=== PATIENT | male | born 1960 | race Caucasian/White ===

== ENCOUNTER → 2018-04-21 06:52 | Outpatient (CLI) | payer OTHER, SELFPAY ==
--- NOTE | 2018-04-21 06:57 | DI.MRI.S_ITS ---
PROCEDURE: MR LUMBAR SPINE WO CON INDICATIONS: Low back pain. Left leg radicular pain with left calf burning sensation TECHNIQUE: Noncontrast sagittal T1 spin echo and T2 fast echo, sagittal STIR, axial T1 and T2 fast spin echo through the lumbar spine. In cases with scoliosis, additional coronal T2 fast spin echo may be performed. COMPARISON: None. FINDINGS: Image quality: Excellent. Alignment and Curvature: There is straightening of the normal lumbar lordosis. No focal AP alignment abnormality is seen. On sample tester images, mild convex lumbar scoliotic curvature can be seen. Bone Marrow: Marrow is of normal overall signal. No acute vertebral body compression fractures. Spinal Cord: Conus medullaris terminates at the L1 level. Visualized cord demonstrates normal signal and size. Paraspinous Soft Tissues: No paravertebral masses. T12-L1: Mild loss of disc height is seen. Loss of disc signal is seen. Moderate disc bulge is seen, which is eccentric to the left. There is a central/left disc extrusion, with inferior migration of disc material, as on series 5 image 9. There is mild to moderate left-sided and no significant right-sided neural foraminal narrowing seen. Moderate central canal narrowing is seen. L1-L2: No significant abnormality is seen. L2-L3: Moderate to severe loss of disc height and disc signal are seen. Prominent disc bulge is seen at this level. There is a central disc extrusion seen, with mild inferior migration of the disc material. Moderate to severe bilateral neural foraminal narrowing is seen, right worse than left. Severe central canal narrowing is seen. L3-L4: The disc height and disc signal are relatively well-preserved. Mild to moderate disc bulge is seen, which is eccentric to the right. There is mild left-sided and moderate right-sided neural foraminal narrowing seen. Minimal central canal narrowing is seen. L4-L5: There is moderate loss of disc height on the left side. Loss of disc signal is seen. Moderate to prominent disc bulge is seen, with a central disc extrusion. Mild to moderate facet hypertrophy is seen. Moderate to severe bilateral neural foraminal narrowing is seen, left worse than right. Moderate to severe central canal narrowing is seen, as on series 5 image 30. L5-S1: Moderate to severe loss of disc height and disc signal are seen at this level. Moderate generalized disc bulge is seen. There is a central disc extrusion, with inferior migration of the disc material, as on series 2 image 8 and on series 5 image 36. Moderate facet joint hypertrophy is seen. Moderate to severe bilateral neural foraminal narrowing is seen. Moderate central canal narrowing is seen. IMPRESSION: Multiple levels of relatively prominent degenerative change are seen. At the L5-S1 level, there is a significant disc extrusion seen with associated moderate central canal narrowing. There is moderate to severe bilateral neural foraminal narrowing seen at this level. At L2-L3, there is moderate to severe bilateral neural foraminal narrowing and severe central canal narrowing present. Dictated by: Marty Tran M.D. on 04/21/2018 at 8:49 Approved by: Marty Tran M.D. on 04/21/2018 at 8:56
== END ==
PROVIDERS: Visit Provider Physical Medicine & Rehabilitation
DX: M54.5 Low back pain (principal); M47.26 Other spondylosis with radiculopathy, lumbar region; M47.27 Other spondylosis with radiculopathy, lumbosacral region; M48.061 Spinal stenosis, lumbar region without neurogenic claudication; M48.07 Spinal stenosis, lumbosacral region
CPT/HCPCS: 72148

== ENCOUNTER 2019-01-18 08:11 | Outpatient (CLI) | payer OTHER, SELFPAY ==
[2019-01-18] VITALS (8 sets, daily range): BP systolic 106–152; BP diastolic 46–83; PULSE 43–55; RESP 15–16; TEMP 36.1; O2SAT 97–100
--- NOTE | 2019-01-18 08:13 | DI.RAD.S_ITS ---
PROCEDURE: XR LUMBAR SPINE MIN 4V INDICATIONS: Lumbosacral spondylosis with left lower extremity radiculopa TECHNIQUE: 5 views of the lumbar spine were acquired. COMPARISON: [facility], MR, MR LUMBAR SPINE WO CON, 04/21/2018, 7:14. FINDINGS: Bones: 5 nonrib-bearing vertebrae are present. There is trace retrolisthesis of L1 on L2, L4 and L5, grade 1 retrolisthesis of L3 on L4, L5 on S1. No vertebral body compression fractures. No suspicious bony lesions. Severe disc space narrowing with endplate changes are present at L2-3 and L5-S1. Moderate disc space narrowing is present at L4-5. Multilevel anterior osteophytes are present. Severe foraminal narrowing is present at multiple levels including L2-3, L3-4, L4-5 and L5-S1. This was also noted on MRI exam of 04/21/18. Soft tissues: Overlying bowel gas pattern is normal. No suspicious soft tissue calcifications. Oblique images: No pars defects. IMPRESSION: Multilevel degenerative changes as above including multilevel significant foraminal narrowing. Dictated by: Jenifer Shane M.D. on 01/18/2019 at 9:50 Approved by: Jenifer Shane M.D. on 01/18/2019 at 10:05
--- NOTE | 2019-01-18 08:13 | DI.RAD.S_ITS ---
PROCEDURE: PAIN L/S TRANSFORAMINAL INJECT INDICATIONS: INTERVERTEBRAL DISC DISPLACEMENT FINDINGS: Fluoroscopic spot filming was performed to verify placement of spinal needles at the left L4-L5 level(s), as labeled on the films. Appropriate location(s) of the needle tip(s) was confirmed by injection of iodinated contrast. IMPRESSION: Successful needle tip localization adjacent to the left L4-L5 neural foramen for epidural steroid injection. Dictated by: Addison Chandler M.D. on 01/18/2019 at 13:25 Approved by: Addison Chandler M.D. on 01/18/2019 at 13:25
[2019-01-18] MEDS: MIDAZOLAM 5 MG/5 ML VIAL IV (09:14)
[2019-01-18] MEDS: fentaNYL 100 MCG/2 ML INJ 50 MCG IV (09:14)
[2019-01-18] MEDS: BUPIVACAINE 0.25% (PF) VIAL 2 ML INJ (09:18)
[2019-01-18] MEDS: DEXAMETHASONE 10 MG/ML VIAL 20 MG INJ (09:20)
[2019-01-18] MEDS: BETAMETHASONE 30 MG/5 ML MDV 6 MG INJ (09:21)
[2019-01-18] MEDS: IOPAMIDOL 15 ML VIAL 3 ML INJ (09:21)
--- NOTE | 2019-01-18 09:30 | P.PCN_ITS ---
Procedures Date/Time Date of procedure: 01/18/19 Time of procedure: 09:30 General Procedure description: PREOP DIAGNOSIS 1. FORMAINAL STENOSIS WITH LE SYMPTOMS POST OP DIAGNOSIS 1. FORMAINAL STENOSIS WITH LE SYMPTOMS PROCEDURES 1. FLUOROSCOPICALLY GUIDED CONTRAST CONTROLLED TRANSFORAMINAL EPIDURAL STEROID INJECTION - LEFT L4/5 PHYSICIAN: Osmar Ruff DO INDICATIONS: Domo is referred for treatment of Foraminal Stenosis with Left LE Symptoms FINDINGS Foraminal Nerve Root Compression secondary to disc disease and facet hypertrophy DESCRIPTION OF PROCEDURE: Following review of allergy and review of potential side effects and complications, including, but not necessarily limited to, infection, allergic reaction, local tissue breakdown, stroke, temporary or permanent nerve injury, paralysis, and possible , the patient indicated that the patient understood and agreed to proceed. An informed consent document was signed by the patient, witnessed by a nurse, and placed in the patient's chart. Additionally, other tr eatment options including medications, modalities, and physical therapy were reviewed with the patient. After review of previous anaesthesic history and IV conscious sedation the patient was deemed safe to proceed with todays procedure with IV conscious sedation as ASA class II designation. Safety time-out was performed to confirm patient ID, procedure to be performed and site of procedure. IV sedation was accomplished with a combination of 2mg of Versed and 50mcg of Fentanyl administered by the RN after DO order, titrated to patient comfort during the course of the procedure while the patient remained responsive to all verbal commands In the prone position following sterile prep and drape of the lumbar region, the left L4/5 posterior neuroforamen was identified fluoroscopically. The skin was anesthetized via a 25-gauge 1.5-inch needle with 1% lidocaine solution. At this point, a 25-gauge 3.5-inch spinal needle was atraumatically introduced and advanced under fluoroscopic guidance through the posterior left L4/5 neuroforamen to approximately the anterior aspect of the canal. Depth was confirmed on lateral view. Following negative aspiration, injection of approximately 1.5cc of Isovue 200 under live fluoroscopy in the AP view confirmed excellent flow along the nerve root, into the epidural space without vascular or intrathecal uptake observed Radiological data, including multiple fluoroscopic views of the lumbosacral spine, reveal a spinal needle at the left L4/5 posterior neuroforamen. Subsequent views show flow of contrast material flowing superiorly and inferio rly along the nerve root confirming epidural flow. Subsequently, a test dose of 1.5 cc of 1% lidocaine solution was administered and patient was observed for two minutes for signs or symptoms of complications, including abdominal pain, shortness of breath, bilateral upper or lower extremity weakness, nausea and vomiting, prior to steroid injection. At this point, a total of 3cc or 20mg of dexamethasone and 6mg of betamethasone was injected without incident. The procedure tolerated the procedure well without signs or symptoms of complications prior to transfer to the recovery area continued monitoring without incident. The patient was then transferred to the recovery area where they were observed for an appropriate time after the injection. The patient reported a VAS score of 7 prior to the procedure and a post- procedure VAS of 0. Total Fluoroscopy Time: 20.9 seconds Total Conscious Sedation Time: 24min POST OP INSTRUCTIONS The patient was provided a Pain Log to continue to record their response to the target-specific procedure prior to follow-up visit with their referring physician. Additionally, specific post-injection care instructions and a contact number to our office were provided if concerns arise regarding possible complications associated with the procedure are suspected. Osmar Ruff DO Complications: none
--- NOTE | 2019-01-18 09:35 | PC.NURSE ---
ACCEPTED CARE OF PT IN POST PROC AREA IN STABLE CONDITION
--- NOTE | 2019-01-18 09:36 | PC.NURSE ---
Post procedure transfer note: VSS throughout procedure. HR 40-50's. Normal for patient. Able to stand with mild numbness and weakness to left leg. Transfered to Post monitoring. Report given to Angelic Reaves RN. Family at chairside. Pain level 0/10
== END 2019-01-18 10:17 | disposition home or self-care (01) ==
LOC: RAD 08:12
PROVIDERS: Visit Provider Physical Medicine & Rehabilitation
DX: M48.061 Spinal stenosis, lumbar region without neurogenic claudication (principal); M51.16 Intervertebral disc disorders with radiculopathy, lumbar region
CPT/HCPCS: 64483; 72110; 99152; J0702; J1100; J2250; J3010

== ENCOUNTER → 2019-04-02 14:49 | Outpatient (CLI) | payer OTHER, SELFPAY ==
--- NOTE | 2019-04-02 14:52 | DI.RAD.S_ITS ---
PROCEDURE: XR HIP W PEL IF DONE LT MIN 4V INDICATIONS: Right hip pain TECHNIQUE: AP pelvis with lateral view(s) of the bilateral hip(s). COMPARISON: None. FINDINGS: Bones: No dislocation. Pelvic ring appears intact. There is mildly increased sclerosis of the superior lateral aspects of the bilateral femoral necks, left greater than right. There are mild degenerative changes of the hip joints bilaterally. Soft tissues: The visualized bowel gas pattern is nonobstructive. There are vascular soft tissue calcifications. IMPRESSION: 1. Mild degenerative changes of the hip joints bilaterally. 2. Mildly increased sclerosis of the superior lateral aspects of the bilateral femoral necks, left greater than right. These may represent benign enostoses/bone islands, but an early stress reaction or insufficiency fracture could appear similar. Clinical followup and attention on followup radiographs is suggested. Dictated by: Zeke Hauser M.D. on 04/02/2019 at 17:42 Approved by: Zeke Hauser M.D. on 04/02/2019 at 17:52
== END ==
PROVIDERS: Visit Provider Registered Nurse
DX: M25.551 Pain in right hip (principal); M48.07 Spinal stenosis, lumbosacral region; M16.0 Bilateral primary osteoarthritis of hip
CPT/HCPCS: 73522

== ENCOUNTER 2019-05-04 07:21 | Outpatient (CLI) | payer OTHER, SELFPAY ==
[2019-05-04] VITALS (7 sets, daily range): BP systolic 100–132; BP diastolic 51–66; PULSE 38–44; RESP 16; TEMP 36.1; O2SAT 97–100
--- NOTE | 2019-05-04 07:22 | DI.RAD.S_ITS ---
PROCEDURE: PAIN L INTERLAMINAR/CAUDAL INJ INDICATIONS: SPINAL STENOSIS FINDINGS: Fluoroscopic spot filming was performed to verify placement of spinal needles at the L4-L5 level(s), as labeled on the films. Appropriate location(s) of the needle tip(s) was confirmed by injection of iodinated contrast. Dictated by: Alcides Kuo M.D. on 05/04/2019 at 11:29 Approved by: Alcides Kuo M.D. on 05/04/2019 at 11:29
[2019-05-04] MEDS: MIDAZOLAM 5 MG/5 ML VIAL IV (08:44)
[2019-05-04] MEDS: IOPAMIDOL 15 ML VIAL 3 ML INJ (08:48)
[2019-05-04] MEDS: BUPIVACAINE 0.25% (PF) VIAL 2 ML INJ (08:49)
[2019-05-04] MEDS: BETAMETHASONE 30 MG/5 ML MDV 6 MG INJ (08:49)
[2019-05-04] MEDS: DEXAMETHASONE 10 MG/ML VIAL 20 MG INJ (08:49)
--- NOTE | 2019-05-04 08:52 | PC.NURSE ---
ASSISTING PT OFF TABLE AND TRANSPORTING TO POST PROC AREA IN STABLE CONDITION. PASSING RN CARE OF PT OFF TO SAMANTHA Mckeon RN.
--- NOTE | 2019-05-04 08:58 | P.PCN_ITS ---
Procedures Date/Time Date of procedure: 05/04/19 Time of procedure: 08:58 General Procedure description: PROVIDER: Osmar Ruff DO Operative Note PREOP DIAGNOSIS 1. HNP WITH RADICULAR FEATURES, 2. MULTILEVEL CENTRAL STENOSIS, POST OP DIAGNOSIS 1. HNP WITH RADICULAR FEATURES, 2. MULTILEVEL CENTRAL STENOSIS PROCEDURES 1. FLUORSCOPICALLY GUIDED CONTRAST CONTROLLED INTERLAMINAR EPIDURAL STEROID INJECTION -para left L4/5 PHYSICIAN: Osmar Ruff DO INDICATIONs: Lokesh is referred for treatment of Bilateral Foraminal Stenosis R>L LE symptoms. FINDINGS Multilevel Central Spinal Stenosis with Nerve Root Compression DESCRIPTION OF PROCEDURE Fluoroscopically guided, contrast-controlled para left L4/5 translaminar epidural steroid injection. Following review of allergy and review of potential side effects and complications, including, but not necessarily limited to, infection, allergic reaction, local tissue breakdown, temporary as well as permanent nerve injury, paralysis, stroke and possible , the patient indicated that the patient understood and agreed to proceed. An informed consent document was signed by the patient, witnessed by a nurse, and placed in the patient's chart. Additionally, other treatment options including modalities, medications, and physical therapy were reviewed with the patient. After review of previous anaesthesic history and IV conscious sedation the patient was deemed safe to proceed with todays procedure with IV conscious sedation as ASA class II designation. Safety time-out was performed to confirm patient ID, procedure to be performed and site of procedure. IV sedation was accomplished with 2mg of Versed was administered by the RN after DO order, titrated to patient comfort during the course of the procedure while the patient remained responsive to all verbal commands In the prone position, following sterile prep and drape of the lumbar region, the L4/5 translaminar space was identified fluoroscopically. The skin was anesthetized via a 25-gauge, 1.5-inch needle with 1% lidocaine solution. At this point, a 22-gauge short bevel spinal needle was atraumatically introduced and advanced under fluoroscopic guidance into the region of the L4/5 translaminar space. Depth was confirmed on lateral view. Radiological data, including multiple fluoroscopic views of the lumbar spine, reveal a spinal needle at the L4/5 translaminar space. Lateral views then show placement of the needle in the epidural space. Subsequent views show contrast material flowing superiorly and inferiorly in the epidural space. No vascular or intrathecal uptake is observed. At this point, using loss of resistance technique with saline and air, the epidural space was entered. This was confirmed following negative aspiration with injection of approximately 1.5 cc of Isovue 200, showing excellent epidural flow without vascular or intrathecal uptake. At this point, 1 cc of 1% lidocaine solution combined with 3cc or 20mg of dexamethasone and 6mg betamethasone was injected without incident. The patient tolerated the procedure well without signs or symptoms of complications prior to transfer to the recovery area continued monitoring without incident. The patient was then transferred to the recovery area where they were observed for an appropriate period of time after the injection. The patient reported a VAS score of 6 prior to the procedure and a post-proced ure VAS of 0. Total Fluoroscopy Time: 6 seconds Total Conscious Sedation Time: 24min POST OP INSTRUCTIONS The patient was provided a Pain Log to continue to record their response to the target-specific procedure prior to follow-up visit with their referring physician. Additionally, specific post-injection care instructions and a contact number to our office were provided if concerns arise regarding possible complications associated with the procedure are suspected. Osmar Ruff DO Complications: none
--- NOTE | 2019-05-04 09:01 | PC.NURSE ---
Post procedure arrival note: Patient arrived at 0900. VSS. HR 43. WNL for patient. No complaints of pain. Pain level 0/10. Denies any unusual numbness or tingling to lower extremities. Handoff report received from Angelic Reaves RN. Discharge instructions given and explained to patient and spouse. at chairside.
--- NOTE | 2019-05-04 09:21 | PC.NURSE ---
Discharge note: VSS, Patient HR consistently 40-50's. Asymptomatic bradycardia. Recommended patient to contact primary physician to review cardiac medications. Discharged to home with . Transferred to w/c from recliner independently. pain
== END 2019-05-04 09:19 | disposition home or self-care (01) ==
LOC: RAD 07:22
PROVIDERS: Visit Provider Physical Medicine & Rehabilitation
DX: M51.16 Intervertebral disc disorders with radiculopathy, lumbar region (principal); M48.061 Spinal stenosis, lumbar region without neurogenic claudication
CPT/HCPCS: 62323; 99152; J0702; J1100; J2250; J3010

== ENCOUNTER → 2020-04-21 14:01 | Outpatient (CLI) | payer OTHER, SELFPAY ==
[2020-04-21 14:42] LABS: COVID19 -Nasal RAPID Negative (Negative)
== END ==
PROVIDERS: Visit Provider Physician Assistant
DX: Z20.822 Contact with and (suspected) exposure to COVID-19 (principal)
CPT/HCPCS: 87635

== ENCOUNTER 2020-04-25 15:35 | Observation (INO) | payer OTHER, SELFPAY ==
[2020-04-10 12:57] VITALS: BMI 33.5
[2020-04-24] VITALS (20 sets, daily range): BP systolic 115–178; BP diastolic 42–98; PULSE 52–74; RESP 9–20; TEMP 36.2–36.8; O2SAT 93–100; BMI 32.8
--- NOTE | 2020-04-24 | DI.RAD.S_ITS ---
PROCEDURE: XR LUMBAR SPINE 2-3V INDICATIONS: L4-S1 LAMINECTOMY, L5 S1 INSTRUMENTATION TECHNIQUE: 2 views of the lumbar spine were acquired. COMPARISON: [facility], , XR LUMBAR SPINE MIN 4V, 01/18/2019, 8:52. FINDINGS: Intraoperative images demonstrate L5-S1 fusion are noted. Intervertebral prosthetic disc is noted. Hardware appears intact. There is good anatomic alignment. Osteophytes are noted at L4 and L5. Foraminal narrowing is also present L4-5 and L5-S1. IMPRESSION: L5-S1 fusion as above. Dictated by: Jenifer Shane M.D. on 04/24/2020 at 12:55 Approved by: Jenifer Shane M.D. on 04/24/2020 at 12:55
[2020-04-24] MEDS: ACETAMINOPHEN 325 MG TABLET 975 MG PO (07:01)
[2020-04-24] MEDS: LACTATED RINGERS 1,000 ML 42 ML IV ×2 (07:01→10:05)
--- NOTE | 2020-04-24 07:10 | PM.PREOP ---
Pre-operative Note COVID-19 COVID-19 status: Negative Result date/Date tested (Pos, Neg/Pending): 04/21/20 Interval Note History & Physical reviewed/Exam performed by Physician: Yes Changes to H&P: No
[2020-04-24] MEDS: CEFAZOLIN 2 GM/100 ML FROZ.PIGGY IV ×3 (07:55→23:29)
--- NOTE | 2020-04-24 08:19 | SUR.OPER ---
Prone on spine table, head in foam head support, padded chest and pelvic supports, gel pad at knees, lower legs supported by pillows; nipples, genitalia and toes free of pressure, arms secured on foam padded arm boards at <90 degrees abduction. Tape over blanket at thigh secured to table.
[2020-04-24] MEDS: THROMBIN (RECOMBINANT) 5,000 UNIT VIAL 5000 UNIT TOP (08:22)
[2020-04-24] MEDS: VANCOMYCIN 1,000 MG VIAL 1000 MG TOP (08:22)
[2020-04-24] MEDS: SODIUM CHLORIDE 0.9% 1,000 ML, GENTAMICIN 80 MG IRR ×2 (08:23→08:28)
[2020-04-24] MEDS: BUPIVACAINE 0.5% (PF) 4 ML, MORPHINE-PF 4 MG, BUTORPHANOL 1 MG, fentaNYL 100 MCG INJ (10:03)
--- NOTE | 2020-04-24 11:01 | PM.OP.1 ---
Operative Date/Time/Diagnoses Date of procedure: 04/24/20 Time of procedure: 11:01 Pre-op diagnosis: Lumbar stenosis with radiculopathy Post-op diagnosis: same Procedure & Clinicians Procedure: L4-5, L5-S1 laminectomies L5-S1 TLIF (posterior/posterior interbody fusion) with cage L5-S1 screws Iliac crest bone graft aspirate Use of microscope Placement of epidural catheter Same procedure as scheduled: Yes Indications: [age] year old male with intractable pain from stenosis. They had failed conservative management and requested operative intervention. Risks and benefits of surgery were discussed and appropriate consents were obtained. Surgeon: Yazan Powell Senior Training Specialist: Audra Washington Anesthesia Type: General Operative Notes Findings: None Closure Type: primary Specimen(s): none sent Prosthetic devices, grafts, tissues, transplants, or devices: NuVasive MAS Reline screws Globus Rise cage Applied: catheter Estimated Blood Loss (mL): 20 Blood products transfused: none Procedure in detail: The patient was brought to the operating room and intubated on the table. A time-out was performed. They were then rolled over to the well-padded Daniel table in the prone position. Preoperative antibiotics were given. The back was prepped and draped in the standard sterile fashion. Using fluoroscopy, a 4 cm longitudinal incision was made to the well marked left of the midline. We used Bovie to come down to and split the lumbodorsal fascia. Using fluoroscopy and monitoring, we then percutaneously placed Jamshidi needles down the pedicles of L5 and S1 on the right side. These were changed out to guidewires and then we tapped and then placed the NuVasive MAS Reline screw shanks. We then opened up the retractors and used Bovie to clear up the posterolateral gutter as well as medially along the lamina to the spinous processes. A bur was used to decorticate the transverse processes. We brought in the microscope. Using a combination of bur and Kerrison rongeurs, a laminectomy was performed from the right side. We cleared over past the midline and carefully depressed the dura until we were able to decompress the opposite side. We cleared out the neural foramen, which required a complete facetectomy to open this. This completed the laminectomy at L5-S1. This was separate and distinct from the TLIF approach as we were decompressing the exiting L5 root as well as the traversing S1 roots. We then began the TLIF prep. We carefully cleaned up the remainder of the foramen until we could easily retract the exiting root as well as clearing medially below the dura and expose the disc space. The disc was prepped with bipolar and then an annulotomy was performed. We performed a diskectomy using a combination of paddles, tod, pituitaries, and curettes. We distracted the disc using a paddle and locked the retractor in an open position. We then filled the disc space with Osteocel bone graft. We then placed the globus rise cage under fluoroscopy and then filled this in with more bone graft. The distraction on the retractor was released to compress down. This completed the posterior interbody fusion portion of the TLIF at L5-S1. We then rotated the retractor up to L4-5 and opened this up. The soft tissue was cleared off. We performed a laminectomy at L4-5 using a bur and Kerrison Mast. We carefully depressed the dura and decompress the opposite side. We had to remove a large amount of facet hypertrophy for the subarticular stenosis. Once this was cleared out we could easily traced the L5 nerve root traversing through this level and then around to the exiting foramen at the level below. We cleared the foramen with the exiting L4 root. We examined the disc. There was still a very large disc herniation on this side. The dura was carefully swept medially and a diskectomy was performed with pituitary. At the end we could sweep the ball probe underneath the dura and there was no further pressure from the disc. An epidural catheter was then prepped with 4 mL of 0.5% Marcaine, 1 mg Stadol, 4 mg Duramorph, and 100 mcg of fentanyl and placed in the spinal canal by carefully depressing the dura and advancing it 6 cm cephalad under the remaining lamina without resistance. We then placed the screw heads, asmita, and locked down the set screws. The wound was copiously irrigated. A small stab incision was made over the PSIS. We used a Jamshidi needle to aspirate several mL of bone marrow from the pelvis. This was mixed with the remaining Osteocel and combined with all of the locally harvested bone graft and placed in the posterolateral gutter for the posterior fusion of the TLIF at L5-S1. The muscle fascia was closed. The epidural catheter was then injected without resistance and the catheter was pulled. We then went to the opposite side. Again using fluoroscopy, a 3 cm incision was made and Bovie was used to come down to split the fascia. Using neural monitoring and fluoroscopy, Jamshidi needles were advanced down the pedicles of L5 and S1 on the right side. These were switched over guidewires, tapped, and screws placed. We then placed a asmita and locked the set screws on this side. The wound was irrigated. The fascia was closed. Vancomycin powder was placed in the wounds. The superficial and skin were closed. A sterile dressing was placed. The patient was then rolled over extubated and brought to recovery room without complications. Complications: none Post-operative Condition: stable Disposition: PACU Plan for aftercare: Inpatient. Up with PT.
[2020-04-24] MEDS: fentaNYL 100 MCG/2 ML INJ IV ×2 (11:16→11:21)
[2020-04-24] MEDS: ONDANSETRON 4 MG/2 ML INJ IV (11:17)
[2020-04-24] MEDS: HYDROMORPHONE 2 MG INJ IV (11:18)
[2020-04-24] MEDS: INSULIN ASPART 100 UNIT/ML INSULN PEN SUBCUT ×2 (11:24→17:05)
--- NOTE | 2020-04-24 11:30 | SUR.PHASEI ---
Patient awake but drowsy and c/o pain 5/10; Patient denies any numbness or shooting pains down legs. GCS 15. VSS.
[2020-04-24] MEDS: OXYCODONE IR 5 MG TABLET PO ×2 (11:33→11:58)
--- NOTE | 2020-04-24 12:20 | PC.NURSE ---
Day shift: Pt on unit from PACu at approx 1215. He is A&Ox3. The 3 dressings on his lower back are CDI. Tolerating foot SCD's. Reports back pain 5/10. Denies nausea and chest pain. CMS ok. PPP. Oriented to room and call light. Agrees to not get OOB w/o help from staff. RA 95%. Instructed on I.S. use. Bed alarm is on. Call light in reach.
[2020-04-24] MEDS: LACTATED RINGERS 1,000 ML 125 ML IV ×2 (13:01→21:05)
[2020-04-24] MEDS: CELECOXIB 200 MG CAPSULE 400 MG PO (13:04)
[2020-04-24] MEDS: hydrOXYzine pamoate 25 MG CAPSULE PO ×3 (13:59→21:17)
[2020-04-24] MEDS: GABAPENTIN 600 MG TABLET PO ×2 (13:59→20:03)
[2020-04-24] MEDS: HYDROCODONE/ACET 5/325 TABLET 2 TAB PO (13:59)
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
--- NOTE | 2020-04-24 16:06 | OT.IPNOTE ---
Attempted OT eval and pt states just wanting to rest. To check of pt tomorrow.
[2020-04-24] MEDS: OXYCODONE IR 10 MG TABLET PO ×2 (17:41→21:05)
[2020-04-24] MEDS: cloNIDine 0.1 MG TABLET 0.2 MG PO (20:02)
[2020-04-24] MEDS: AMLODIPINE 5 MG TABLET PO (20:02)
[2020-04-24] MEDS: CELECOXIB 200 MG CAPSULE PO (20:02)
[2020-04-24] MEDS: DOCUSATE 100 MG CAPSULE PO (20:03)
[2020-04-24] MEDS: glyBURIDE 5 MG TABLET 10 MG PO (20:04)
[2020-04-24] MEDS: LABETALOL 100 MG TABLET PO (20:04)
[2020-04-24] MEDS: METFORMIN HCL 500 MG TABLET PO (20:05)
[2020-04-24] MEDS: lisinopriL 20 MG TABLET PO (20:05)
[2020-04-24] MEDS: SIMVASTATIN 20 MG TABLET 10 MG PO (20:06)
[2020-04-24] MEDS: METFORMIN HCL 500 MG TABLET 1000 MG PO (20:06)
[2020-04-24] MEDS: SENNOSIDES 8.6 MG TABLET 17.2 MG PO (20:06)
[2020-04-24] MEDS: SITAGLIPTIN 50 MG TABLET PO (20:07)
[2020-04-24] MEDS: INSULIN GLARGINE 100 UNIT/ML 3ML PEN 26 UNIT SUBCUT (23:28)
[2020-04-25] VITALS (10 sets, daily range): BP systolic 96–151; BP diastolic 45–73; PULSE 59–70; RESP 14–18; TEMP 37–38.3; O2SAT 94–98
[2020-04-25] MEDS: OXYMETAZOLINE NASAL SPRAY 15 ML 2 SPRAYS NASAL (00:05)
[2020-04-25] MEDS: OXYCODONE IR 10 MG TABLET PO ×8 (00:05→20:59)
[2020-04-25] MEDS: hydrOXYzine pamoate 25 MG CAPSULE PO ×4 (01:17→12:20)
--- NOTE | 2020-04-25 01:42 | PC.NURSE ---
Addendum entered by Aparna Goff R.N. 04/25/20 06:53: States he feels like the epidural is wearing off. Has been taking Oxycodone q3h and Vistaril q4h during the night and pain has not been any better than 5/10 but was reluctant to take IV pain medications. Did get some relief from ice pack and was able to sleep at short intervals. This morning pain is now 8/10 and agreeable to taking IV Dilaudid. Original Note: Patient complaining of 7/10 back pain at 0000 and was medicated with Oxycodone, repositioned and ice applied. At 0117 medicated additionally with Vistaril as pain continues to be 5/10. Patient is alert and oriented. Breath sounds CTA with RA sat of 96%. HRR but bradycardic in 50's which patient states is normal for him. BP 140/67 which has improved from earlier readings. Denies nausea. BT present and is passing flatus. Indwelling catheter is patent; urine is clear yellow. Able to assist in repositioning. Dressing to back is CDI. Has chronic neuropathy of plantar surface bilateral feet otherwise CMS is intact although he states when he was up with PT yesterday he had weakness in right LE> Wearing bilateral foot SCD's. Fall risk score is high so bed alarm is activated when spouse no present in room; patient verbalizes understanding.
[2020-04-25 06:23] LABS: Hematocrit 31.2 % (41-53); Hemoglobin 10.6 g/dL (13.5-17.5)
[2020-04-25] MEDS: SODIUM CHLORIDE 0.9% FLUSH 10 ML IV ×4 (06:49→23:48)
[2020-04-25] MEDS: HYDROMORPHONE 0.5 MG INJ IV ×4 (06:49→23:47)
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
[2020-04-25] MEDS: LABETALOL 100 MG TABLET PO (08:26)
[2020-04-25] MEDS: lisinopriL 20 MG TABLET PO ×2 (08:26→21:13)
[2020-04-25] MEDS: SITAGLIPTIN 50 MG TABLET PO ×2 (08:26→17:20)
[2020-04-25] MEDS: glyBURIDE 5 MG TABLET 10 MG PO ×2 (08:26→17:19)
[2020-04-25] MEDS: AMLODIPINE 5 MG TABLET PO ×2 (08:26→21:12)
[2020-04-25] MEDS: CELECOXIB 200 MG CAPSULE PO ×2 (08:26→21:12)
[2020-04-25] MEDS: DOCUSATE 100 MG CAPSULE PO ×2 (08:26→21:13)
[2020-04-25] MEDS: cloNIDine 0.1 MG TABLET 0.2 MG PO (08:27)
[2020-04-25] MEDS: hydroCHLOROthiazide 12.5 MG CAPSULE PO (08:33)
[2020-04-25] MEDS: GABAPENTIN 600 MG TABLET PO ×3 (08:33→21:13)
--- NOTE | 2020-04-25 08:49 | CM.DANOTE ---
Addendum entered by Shelli Negrete LPN 04/25/20 09:11: Met as planned with pt. He confirms his plan for home. 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 P: home with family support when stable for same. Expected to be tomorrow. Original Note: Discharge Planning/Care Management DCP: assessment: case received, EMR reviewed. Pt is a 60 year old malel who admitted yesterday for a scheduled spinal/lumbar region surgery. Surgeon: Dr. Powell Payer: Stephany Santiago. PCP: Summer Powell saw pt today and wants to continue OT/PT today with d/c to home setting anticipated for tomorrow. Pt will be supported in his recovery by his and adult daughter. Alie is designated visitor and will be involved in caregiver training. Will check in with pt for introduction of self and role and to confirm above info. CM Discharge Assessment Start: 04/25/20 08:48 Freq: Status: Active Protocol: Document 04/25/20 08:48 ITV (Rec: 04/25/20 08:49 ITV [id number]) Discharge Planning Assessment Advance Directives? 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 Type of transporation used prior to Drives own vehicle admit Is patient alert and oriented? Yes Review Status In Process Pre-Anesthesia Assessment Start: 04/10/20 12:57 Freq: Status: Complete Protocol: Document 04/10/20 12:57 CAB (Rec: 04/10/20 13:47 CAB [id number]) Pre-Anesthesia Assessment Patient Information Reviewed Via Phone Assessment Assessment Completed With Patient Comment Outside labs/EKG done, not here, COVID screen-pt needs to schedule, # given Primary Care Provider Summer Carmona Medical Clearance Received Yes Seen Specialist in Last 12 Months Yes Specialist Seen Orthopedist,Bingo Floater,Other Comment PCP clearance and last visit scanned Primary Language Arabic Construction Equipment Operator Required No Height 185.42 cm Weight 115.212 kg Body Mass Index (BMI) 33.5 Hearing Ability Normal Visual Assist Glasses Dentition Type Teeth, Natural Present Barriers to Learning None Hx Anesthesia Reactions Yes: PONV w/ankle surgery Hx Family Anesthesia Reaction No Hx Malignant Hyperthermia No Hx Blood Transfusions No Anesthesia Review Requested Yes: Reviewed prior to scheduling Additional comment Anesthesia review scanned alcohol intake never Smoking Status Never smoker Substance Use Type does not use Pain Present Pain Reported Musculoskeletal Symptoms Abnormal Gait,Back Pain,Joint Pain,Radiating Pain into Limb History of Falling (Recent or History of No ) Patient is completely paralyzed or No completely immobile Mental Status Oriented to own ability Is patient on oxygen? No Does patient have MILLER/SOB No Hx Sleep Apnea No Currently Taking a Beta Hanna Yes: Labetalol Can You Climb a Flight of Stairs Without Yes SOB Hx Chest Pain No Hx SOB No Hx Syncope or Dizziness No Anti-Coagulant Therapy No Has a Tallow Refiner No Cardiac Testing No Hx Pacemaker/ICD No Pacemaker Rep Required? No Cardiac Clearance Received Not Applicable Diet Type At Home Ketogenic dysphagia No Gastrointestinal Symptoms Diarrhea Urinary Catheter Present No Hx Urinary Self Catheterization No Diabetes Yes HgbA1C 6.5 Date 04/02/20 Hx Drug Resistant Organism No Presence of External or Internal Medical Yes: Partial right knee, right Devices ankle Have you had any close contact with No someone diagnosed with COVID-19? Marital Status Lives With spouse,children Prior Living Arrangements House Number of Floors (Floors) One Floor Support System Child/Children,Spouse Does the Patient Have Assistance After Yes Surgery Patient Discharge Plan Description Return Home Comment Pt advised 1-2 day length of stay per surgeon Feels Safe in Current Environment Yes Been Physically Hurt or Threatened By a No Person in Current Environment Do you have thoughts of harming yourself None or others? Are you currently considering suicide? No Do you have a plan to hurt yourself or No Plan others? Do You Have Any Spiritual Beliefs That No May Affect Your HC Choices? Do You Have Any Cultural Practices That No May Affect Your HC Choices? Comment [employer] Who Can We Speak to About Patient's Care Family, Friends Identifying Code for Release of Patient Declines to issue Information Health Care Proxy/Next of Kin Alie () Health Care Proxy Emergency Contact Name Alie () Emergency Contact Advance Directives? No Power of Hand Woven Carpet And Rug Mender No PAC Instructions Durable medical equipment, Medications to take/avoid, Nasal antibiotic,No ETOH/ petroleum product on skin DOS, NPO,Post-op transportation,Pre -surgical wash,Sturdy shoes/ comfortable clothes,Do not bring valuables and remove jewelry
[2020-04-25] MEDS: LATANOPROST 0.005% OPHTH 2.5 ML 1 DROPS EYE-BOTH (10:43)
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
[2020-04-25] MEDS: ONDANSETRON 4 MG/2 ML INJ IV (11:38)
--- NOTE | 2020-04-25 12:05 | PT.IPTN ---
Current Diagnoses Spinal stenosis, lumbar region with neurogenic claudication (04/24/20) Intervertebral disc disorders with radiculopathy, lumbar region (04/24/20) Surgery Performed Operation Date: 04/24/20 07:45 Actual Procedures p L4-S1 laminectomies, L5S1 instrumented fusion w. bone graft (TLIF) - Yazan Powell MD Physical Therapy Treatment Note M2 PT-IP Current Condition Start: 04/24/20 13:14 Freq: NEEDED Status: Active Protocol: Document 04/24/20 14:21 AW (Rec: 04/24/20 14:40 AW [id number]) Physical Therapy Current Condition Current Condition Evaluation Date 04/24/20 Treatment Diagnosis L4-S1 laminectomies; L5-S1 TLIF; impaired mobility and gait Onset Date 04/24/20 Precautions Lumbar Precautions Log Roll,No Twisting,Limit Bending,Lifting Restriction of 10 lbs,Gait Belt above Incisional Area M3 PT-IP Subjective Start: 04/24/20 13:14 Freq: NEEDED Status: Active Protocol: Document 04/25/20 11:50 KS (Rec: 04/25/20 14:21 KS [id number]) Subjective Physical Therapy Visit Type Type Treatment Note Visit Start Time 11:50 Visit Stop Time 12:05 Total Visit Minutes 15 Notes pt agreeable to work with therapy Number of RAND BUTTER Visits 1 M4 PT-IP Mobility and Gait Start: 04/24/20 13:14 Freq: NEEDED Status: Active Protocol: Document 04/25/20 11:50 KS (Rec: 04/25/20 14:21 KS [id number]) PT-Bed Mobility Assessment Rolling Type of Rolling Log Rolling,Roll to Left Level of Assist Minimal Assistance,1 Person Assistance Sit to Supine Sit to Supine Minimal Assistance,1 Person Assistance Scooting Scooting to Edge of Bed Standby Assistance PT-Transfer Assessment Sit to and From Stand Sit to and from Stand Contact Guard Assistance,1 Person Assistance,Use of Upper Extremities Equipment Transfer Assistive Device Bed Rail Orthotic/Prosthetic Devices or Brace: No Transfers Transfer Destination Bed Transfer Technique pt ambulated w/ FWW Transfer Ability Level of Assist Contact Guard Assistance, Minimal Assistance Comments Mobility Comments Pt in chair upon arrival from therapy. CGA for sit<>stand w/ FWW. Pt then ambulated ~30 ft w/ FWW in room CGA and requested to go back to bed d/ t pain and fatigue. CGA for stand<>sit, Min A for sit<> sidelying and logroll back into bed. Pt left in bed w/ ice applied to low back and all needs in reach. Gait Assessment Gait Gait Assistance Required: Contact Guard Assist Distance (Feet) 30 Able to Maintain Weight Bearing Status Yes During Gait Assistive Devices Assistive Device Gait Belt,Front Wheeled Walker Orthotic/Prosthetic Devices or Brace: No Gait Deviations General Gait Pattern Antalgic,Decreased Stride Length,Decreased Feet Clearance,Flexed Trunk,Wide Based Gait Factors Limiting Gait Function Factors Limiting Gait Function Decreased Activity Tolerance, Decreased Sensation,Decreased Strength,Limited Range of Motion,Pain,Poor Balance Comments Gait Comments Pt ambulated ~30 ft w/ FWW and CGA. Denied dizziness or lighheadedness. Stair Climbing Assessment Comments Stair Climbing Comments Not assessed. No stairs at home. PT-Balance Assessment Sitting Balance and Reactions Static Sitting Balance Ability Good Dynamic Sitting Balance Ability Good Standing Balance and Reactions Static Standing Balance Ability Good Dynamic Standing Balance Ability Good Device Used FWW M5 PT-IP Objective Assessments Start: 04/24/20 13:14 Freq: NEEDED Status: Active Protocol: Document 04/24/20 14:21 AW (Rec: 04/24/20 14:49 AW [id number]) Orientation Orientation/Cognition Level of Alertness Alert Orientation Name,Day of Week,Place, Situation Language Function Ability No Deficits Noted Safety Awareness Understands Safety Issues Memory Description No Deficits Noted Gross Range of Motion Lower Extremity ROM Assessment Right Impaired Impairments Lacking AROM R ankle dorsiflexion secondary to past surgery. Strength Lower Extremity Strength Assessment Bilaterally Impaired Hip 4-/5 Knee 4/5 Ankle L 4+/5; R 3-/5 Sensation Assessment Sensation Gross Sensation Right LE Impaired,Left LE Impaired Comments Sensation Comments Chronic neuropathy in bilateral feet affects sensation below the malleoli. Muscle Tone Muscle Tone WNL Yes M6 PT-IP Treatment Start: 04/24/20 13:14 Freq: NEEDED Status: Active Protocol: Document 04/25/20 11:50 KS (Rec: 04/25/20 14:21 KS [id number]) Physical Therapy Treatment Education Education Provided Precautions,Weight Bearing Status,Post-Op Packet,Safety Other Treatments Other Treatment Performed reveiwed precautions, pt able to recall 3/3 M7 PT-IP Assessment and Plan Start: 04/24/20 13:14 Freq: NEEDED Status: Active Protocol: Document 04/25/20 11:50 KS (Rec: 04/25/20 14:21 KS [id number]) PT Summary Assessment and Plan Potential Rehabilitation Potential Good Status of Condition at Evaluation Evolving Summary Impairments Pain,ROM,Strength,Balance, Sensation,Bed Mobility, Transfers,Gait,Activity Tolerance Progress Towards Goals Progressing Toward Goals,Slow Progress due to Pain Assessment Summary Pt requires CGA for sit<>Stand and ambulation w/ FWW and CGA to Min A for sit<>sup and logroll. Patient showed improved tolerance for activity and was able to ambulate ~30 ft, but remains limited by pain and weakness. Will continue to progress, but pt will most likely be safe to d/c home with assist when medically stable. Goals Bed Mobility Goal Independent Transfer Goal Independent,Front Wheeled Walker Gait Goal Standby Assistance,Front Wheel Walker Gait Distance 150 Other Goals - improve gait to 150 feet with LRAD or no AD Days to Meet Goals 5 Frequency of Treatment Frequency Of Treatment Twice a Day Treatment Plan Physical Therapy Treatment Plan Bed Mobility Training,Transfer Training,Gait Training, Therapeutic Exercise,Balance Retraining,Post Op Education, Discharge Planning,Hot or Cold Pack,Neuromuscular Re-ed Other Recommendations and Next Treatment monitor VS; review precautions Focus and log roll; transfers; gait training with FWW Recommendations To Nursing Amount of Assist Needed 1 Person Assist Discharge Recommendations PT Discharge Recommendations Home with Assistance Transportation Needs at Discharge Private Vehicle
--- NOTE | 2020-04-25 15:36 | PT.IPTN ---
Current Diagnoses Spinal stenosis, lumbar region with neurogenic claudication (04/24/20) Intervertebral disc disorders with radiculopathy, lumbar region (04/24/20) Surgery Performed Operation Date: 04/24/20 07:45 Actual Procedures p L4-S1 laminectomies, L5S1 instrumented fusion w. bone graft (TLIF) - Yazan Powell MD Physical Therapy Treatment Note M2 PT-IP Current Condition Start: 04/24/20 13:14 Freq: NEEDED Status: Active Protocol: Document 04/24/20 14:21 AW (Rec: 04/24/20 14:40 AW [id number]) Physical Therapy Current Condition Current Condition Evaluation Date 04/24/20 Treatment Diagnosis L4-S1 laminectomies; L5-S1 TLIF; impaired mobility and gait Onset Date 04/24/20 Precautions Lumbar Precautions Log Roll,No Twisting,Limit Bending,Lifting Restriction of 10 lbs,Gait Belt above Incisional Area M3 PT-IP Subjective Start: 04/24/20 13:14 Freq: NEEDED Status: Active Protocol: Document 04/25/20 15:12 KS (Rec: 04/25/20 15:53 KS [id number]) Subjective Physical Therapy Visit Type Type Treatment Note Visit Start Time 15:12 Visit Stop Time 15:36 Total Visit Minutes 24 Notes pt agreeable to work with therapy Number of MOTOR VEHICLE INSPECTOR Visits 2 M4 PT-IP Mobility and Gait Start: 04/24/20 13:14 Freq: NEEDED Status: Active Protocol: Document 04/25/20 15:12 KS (Rec: 04/25/20 15:53 KS [id number]) PT-Bed Mobility Assessment Rolling Type of Rolling Log Rolling,Roll to Left Level of Assist Contact Guard Assistance,1 Person Assistance Sit to Supine Sit to Supine Contact Guard Assistance,1 Person Assistance,Bedrails Scooting Scooting to Edge of Bed Standby Assistance PT-Transfer Assessment Sit to and From Stand Sit to and from Stand Contact Guard Assistance,1 Person Assistance,Use of Upper Extremities Equipment Transfer Assistive Device Gait Belt,Front Wheeled Walker Orthotic/Prosthetic Devices or Brace: No Transfers Transfer Destination Bed Transfer Ability Level of Assist Contact Guard Assistance,1 Person Assistance Comments Mobility Comments Pt in bed upon arrival from therapy. CGA for logroll and sidelying<>Sit. Pt sit<>Stand w/ FWW and CGA and then ambulated ~120 ft w/ FWW CGA. Pt had decreased stride length and foot clerance, denied increase in pain during ambulation. Patient returned to room and bed CGA for stand< >sit, CGA and cues for sit<> Sidelying and logroll back into bed. Pt left in bed w/ ice applied and all needs in reach. Gait Assessment Gait Gait Assistance Required: Contact Guard Assist Distance (Feet) 120 Able to Maintain Weight Bearing Status Yes During Gait Assistive Devices Assistive Device Gait Belt,Front Wheeled Walker Orthotic/Prosthetic Devices or Brace: No Gait Deviations General Gait Pattern Antalgic,Decreased Stride Length,Decreased Feet Clearance,Flexed Trunk,Wide Based Gait Factors Limiting Gait Function Factors Limiting Gait Function Decreased Activity Tolerance, Decreased Sensation,Decreased Strength,Limited Range of Motion,Pain,Poor Balance Comments Gait Comments Pt ambulated ~120 ft w/ FWW and CGA. Denied dizziness or lighheadedness. Stair Climbing Assessment Comments Stair Climbing Comments Not assessed. No stairs at home. PT-Balance Assessment Sitting Balance and Reactions Static Sitting Balance Ability Good Dynamic Sitting Balance Ability Good Standing Balance and Reactions Static Standing Balance Ability Good Dynamic Standing Balance Ability Good Device Used FWW M5 PT-IP Objective Assessments Start: 04/24/20 13:14 Freq: NEEDED Status: Active Protocol: Document 04/24/20 14:21 AW (Rec: 04/24/20 14:49 AW [id number]) Orientation Orientation/Cognition Level of Alertness Alert Orientation Name,Day of Week,Place, Situation Language Function Ability No Deficits Noted Safety Awareness Understands Safety Issues Memory Description No Deficits Noted Gross Range of Motion Lower Extremity ROM Assessment Right Impaired Impairments Lacking AROM R ankle dorsiflexion secondary to past surgery. Strength Lower Extremity Strength Assessment Bilaterally Impaired Hip 4-/5 Knee 4/5 Ankle L 4+/5; R 3-/5 Sensation Assessment Sensation Gross Sensation Right LE Impaired,Left LE Impaired Comments Sensation Comments Chronic neuropathy in bilateral feet affects sensation below the malleoli. Muscle Tone Muscle Tone WNL Yes M6 PT-IP Treatment Start: 04/24/20 13:14 Freq: NEEDED Status: Active Protocol: Document 04/25/20 15:12 KS (Rec: 04/25/20 15:53 KS [id number]) Physical Therapy Treatment Education Education Provided Precautions,Weight Bearing Status,Post-Op Packet,Safety Other Treatments Other Treatment Performed reveiwed precautions, pt able to recall 3/3 M7 PT-IP Assessment and Plan Start: 04/24/20 13:14 Freq: NEEDED Status: Active Protocol: Document 04/25/20 15:12 KS (Rec: 04/25/20 15:53 KS [id number]) PT Summary Assessment and Plan Potential Rehabilitation Potential Good Status of Condition at Evaluation Evolving Summary Impairments Pain,ROM,Strength,Balance, Sensation,Bed Mobility, Transfers,Gait,Activity Tolerance Progress Towards Goals Progressing Toward Goals,Slow Progress due to Pain Assessment Summary Pt requiring CGA for bed mobility, transfers, and ambulation this PM w/ occasional cues for sequecning . Pt able to tolerate ~120 ft ambulation w/ FWW w/o verbalized increase in pain. Patient will be safe to return home w/ assistance when medically stable. Goals Bed Mobility Goal Independent Transfer Goal Independent,Front Wheeled Walker Gait Goal Standby Assistance,Front Wheel Walker Gait Distance 150 Other Goals - improve gait to 150 feet with LRAD or no AD Days to Meet Goals 5 Frequency of Treatment Frequency Of Treatment Twice a Day Treatment Plan Physical Therapy Treatment Plan Bed Mobility Training,Transfer Training,Gait Training, Therapeutic Exercise,Balance Retraining,Post Op Education, Discharge Planning,Hot or Cold Pack,Neuromuscular Re-ed Other Recommendations and Next Treatment monitor VS; review precautions Focus and log roll; transfers; gait training with FWW Recommendations To Nursing Amount of Assist Needed 1 Person Assist Discharge Recommendations PT Discharge Recommendations Home with Assistance Transportation Needs at Discharge Private Vehicle
[2020-04-25] MEDS: hydrOXYzine pamoate 25 MG CAPSULE 50 MG PO ×2 (16:28→20:59)
[2020-04-25] MEDS: METFORMIN HCL 500 MG TABLET PO (17:20)
[2020-04-25] MEDS: METFORMIN HCL 500 MG TABLET 1000 MG PO (17:20)
[2020-04-25] MEDS: INSULIN ASPART 100 UNIT/ML INSULN PEN SUBCUT ×2 (19:36→22:06)
[2020-04-25] MEDS: SENNOSIDES 8.6 MG TABLET 17.2 MG PO (21:14)
[2020-04-25] MEDS: SIMVASTATIN 20 MG TABLET 10 MG PO (21:14)
[2020-04-25] MEDS: ACETAMINOPHEN 325 MG TABLET 650 MG PO (22:06)
[2020-04-26 00:58] VITALS: BP 138/59; PULSE 70; RESP 18; TEMP 37.7; O2SAT 94
[2020-04-26] MEDS: OXYCODONE IR 10 MG TABLET PO ×3 (01:06→08:29)
[2020-04-26] MEDS: hydrOXYzine pamoate 25 MG CAPSULE 50 MG PO ×4 (01:06→13:36)
[2020-04-26 01:14] VITALS: TEMP 37.1
[2020-04-26] MEDS: SODIUM CHLORIDE 0.9% FLUSH 10 ML IV ×2 (02:05→08:15)
[2020-04-26] MEDS: HYDROMORPHONE 0.5 MG INJ IV ×3 (02:05→10:37)
[2020-04-26 05:00] VITALS: BP 144/74; PULSE 66; RESP 18; TEMP 36.8; O2SAT 95
--- NOTE | 2020-04-26 07:34 | PC.NURSE ---
Pain has been issue. Patient does not feel norco works for him. Taking po percolone and vistaril aqnd alternating with IV dilaudid. This works best per patient.
[2020-04-26] MEDS: LATANOPROST 0.005% OPHTH 2.5 ML 1 DROPS EYE-BOTH (08:15)
[2020-04-26] MEDS: hydroCHLOROthiazide 12.5 MG CAPSULE PO (08:15)
[2020-04-26] MEDS: SITAGLIPTIN 50 MG TABLET PO (08:15)
[2020-04-26] MEDS: CELECOXIB 200 MG CAPSULE PO (08:15)
[2020-04-26] MEDS: METFORMIN HCL 500 MG TABLET 1000 MG PO (08:26)
[2020-04-26] MEDS: DOCUSATE 100 MG CAPSULE PO (08:29)
[2020-04-26] MEDS: glyBURIDE 5 MG TABLET 10 MG PO (08:29)
[2020-04-26] MEDS: ACETAMINOPHEN 325 MG TABLET 650 MG PO (08:29)
[2020-04-26 08:30] VITALS: BP 153/66; PULSE 69
[2020-04-26] MEDS: lisinopriL 20 MG TABLET PO (08:30)
[2020-04-26] MEDS: GABAPENTIN 600 MG TABLET PO (08:30)
[2020-04-26] MEDS: cloNIDine 0.1 MG TABLET 0.2 MG PO (08:30)
[2020-04-26] MEDS: LABETALOL 100 MG TABLET PO (08:31)
[2020-04-26] MEDS: AMLODIPINE 5 MG TABLET PO (08:31)
[2020-04-26] MEDS: HYDROMORPHONE 0.5 MG INJ 0.2 MG IV (08:34)
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
[2020-04-26 09:00] VITALS: BP 153/66; PULSE 69; RESP 18; TEMP 36.8; O2SAT 96
--- NOTE | 2020-04-26 09:17 | PT-IP ANOTE ---
Pt refusing PT this AM, stating he walked 4 laps around nurses station and has been getting in and out of bed w/ logroll and no assistance. Patient able to recall 3/3 precautions and states he feels ready to return home w/ providing assistance.
[2020-04-26] MEDS: OXYCODONE IR 5 MG TABLET PO (11:19)
--- NOTE | 2020-04-26 11:45 | OT.IP.TRT ---
Current Diagnoses Spinal stenosis, lumbar region with neurogenic claudication (04/25/20) Intervertebral disc disorders with radiculopathy, lumbar region (04/25/20) Surgery Performed Operation Date: 04/24/20 07:45 Actual Procedures p L4-S1 laminectomies, L5S1 instrumented fusion w. bone graft (TLIF) - Yazan Powell MD Occupational Therapy Treatment Note M2 OT-IP Current Condition Start: 04/25/20 13:56 Freq: Status: Active Protocol: Document 04/25/20 13:56 CGR (Rec: 04/25/20 14:12 CGR [id number]) Occupational Therapy Current Condition Current Condition Evaluation Date 04/25/20 Treatment Diagnosis L4-S1 TLIF Diagnosis Onset Date 04/24/20 Post Operative Precautions Lumbar Precautions Log Roll,No Twisting,Limit Bending,Lifting Restriction of 10 lbs,Gait Belt above Incisional Area M3 OT- IP Subjective and Pain Start: 04/25/20 13:56 Freq: Status: Active Protocol: Document 04/26/20 13:27 CGR (Rec: 04/26/20 13:35 CGR [id number]) OT- Subjective Occupational Therapy Visit Type Type Progress Note Visit Start Time 10:58 Visit Stop Time 11:45 Total Visit Minutes 47 Notes Pt is planned for discharge home. Pts present throughout most of session. OT Pain Assessment Pain When Pain Assessed At Rest Pain Present Pain Present Pain Reported Location left leg/right buttock Scale Used did not rate Management Techniques Distraction,Modification of Treatment,Re-positioning, Timing of Activity with Medications M4 OT- IP ADL's Start: 04/25/20 13:56 Freq: Status: Active Protocol: Document 04/26/20 13:27 CGR (Rec: 04/26/20 13:35 CGR [id number]) OT [id number] Comments OT Self-Feeding Comments Not meal time OT ADL-Grooming Comments OT Grooming Comments Pt declined need OT ADL-Oral Care Comments Oral Care Comments Pt declined need OT ADL-Dressing General Eval Lower Body Dressing Ability Standby Assistance Areas Needing Assistance Underpants/Brief,Pants/Shorts, Socks Assistive Devices Dressing Assistive Devices Machine Builder,Sock Aid Comments OT Dressing Comments Provided with hip kit and educated on LB dressing using equipment. Pt able to perform without assist. OT ADL-Toileting Comments OT Toileting Comments Not performed OT ADL-Bathing Comments OT Bathing Comments Pt declined, states he will do when he returns home. 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 No Deficits Identified Driving Driving Comments 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 OT- IP Functional Cognition Start: 04/25/20 13:56 Freq: Status: Active Protocol: Document 04/25/20 13:56 CGR (Rec: 04/25/20 14:12 R [id number]) Cognitive Factors Limiting Selfcare Function Cognitive Ability Level of Alertness Alert Patient Orientation Name,Age,Birthday,Month,Date, Year,Day of Week,Place, Situation Attention Span Ability Capable of Focused Attention, Capable of Sustained Attention Ability to Follow Commands Able to Follow Multi-Step Commands Memory Description No Deficits Noted Safety Awareness No Deficits Noted OT- Vision and Hearing OT- Hearing Assessment OT- Hearing Assessment WFL OT- Vision Assessment Visual Acuity Glasses All The Time Visual Attentiveness WFL Occular Pursuits WFL Visual Convergence WFL Vision Assessment Comments Pt wears bifocals M7 OT- IP Mobility and Balance Start: 04/25/20 13:56 Freq: Status: Active Protocol: Document 04/26/20 13:27 CGR (Rec: 04/26/20 13:35 R [id number]) OT- Bed Mobility Assessment Rolling Type of Rolling Log Rolling,Roll to Right Level of Assistance Standby Assistance Supine to Sit Supine to Sit Assist Standby Assistance Scooting Scooting to Edge of Bed Standby Assistance OT-Transfer Assessment Sit to and From Stand Sit to and from Stand Standby Assistance Transfers Transfer Ability Standby Assistance Technique Transfer Destination Bed,Chair Transfer Technique Stand Step Pivot Devices Transfer Assistive Devices Gait Belt,Front Wheeled Walker Comments Mobility Comments Pt needing reminders for slow stand to sit but otherwise using walker correctly. OT- Balance Assessment Sitting Balance and Reactions Static Sitting Balance Ability Good Dynamic Sitting Balance Ability Fair M8 OT- IP Objective Assessments Start: 04/25/20 13:56 Freq: Status: Active Protocol: Document 04/25/20 13:56 CGR (Rec: 04/25/20 14:12 CGR [id number]) OT Gross Range of Motion Upper Extremity Range of Motion Assessment Within Functional Limits OT Strength Upper Extremity Strength Assessment Within Functional Limits OT- Coordination Assessment Upper Extremity Finger to Nose Test Within Functional Limits Finger Tapping Test Within Functional Limits OT-Muscle Tone Assessment Muscle Tone WNL Yes OT Sensation Assessment Edema Edema Absent M9 OT- IP Assessment and Plan Start: 04/25/20 13:56 Freq: Status: Active Protocol: Document 04/26/20 13:27 CGR (Rec: 04/26/20 13:35 CGR [id number]) OT Summary Assessment and Plan Potential Rehabilitation Potential Excellent Analytic Complexity at Evaluation Low Summary OT Impairments Pain,Grooming,Dressing, Toileting,Bathing,Toilet Transfers,Shower Transfers, Activity Tolerance Progress Towards Goals Slow Progress due to Pain Assessment Summary Pt presents as a low complexity evaluation s/p admit for L4-S1 TLIF. Pt is progressing well and planned for discharge home today. Educated on LB draining which pt was able to perform after demonstration. Pt left sitting up in chiar at end of session . Goals Grooming Goal Independent Dressing Goal Independent Toileting Goal Independent Bathing Goal Independent Toilet Transfer Goal Independent Shower Transfer Goal Independent Days to Meet Goals 2 Frequency of Treatment Frequency Of Treatment Once a Day Treatment Plan OT Treatment Plan ADL Training,Functional Mobility,Patient/Family Education,Discharge Planning Other Treatment Recommendations and Next shower Treatment Focus Discharge Recommendations OT Discharge Recommendations Home with Assistance Home Equipment Needs shower chair and toilet heightner Transportation Needs at Discharge Private Vehicle
[2020-04-26] MEDS: HYDROMORPHONE 2 MG TABLET PO (13:36)
[2020-04-26] MEDS: INSULIN ASPART 100 UNIT/ML INSULN PEN SUBCUT (13:44)
[2020-04-26 13:49] VITALS: BP 142/78; PULSE 68
== END 2020-04-26 14:15 | disposition home or self-care (01) ==
LOC: OR 16:35 → AC 16:35
PROVIDERS: Admitting Provider Physician Assistant Surgical; PCP Nurse Practitioner Family; Referring Provider Nurse Practitioner Family; Visit Provider Orthopaedic Surgery
PROC: (CPT 22633; principal; 2020-04-24 07:45)
DX: M48.062 Spinal stenosis, lumbar region with neurogenic claudication (principal); M51.16 Intervertebral disc disorders with radiculopathy, lumbar region; M21.371 Foot drop, right foot; E11.40 Type 2 diabetes mellitus with diabetic neuropathy, unspecified; E66.9 Obesity, unspecified; I10 Essential (primary) hypertension; Z79.4 Long term (current) use of insulin
CPT/HCPCS: 22633; 22853; 22840; 63047; 63048; 20939; 36415; 72100; 76000; 82962; 85014; 85018; 94762; 97116; 97161; 97165; 97530; 97535; C1776; G0378; A9270; J0330; J0595; J0690; J1170; J2274; J2405; J2704; J3010